=== PATIENT | male | born 1975 | race Caucasian/White ===

== ENCOUNTER 2019-06-27 18:00 | Outpatient (CLI) | payer BC | END 2019-06-27 18:01 | disposition home or self-care (01) | LOC: SLEEPLAB 18:00 | PROVIDERS: ATTEND Family Medicine | DX: G47.33 Obstructive sleep apnea (adult) (pediatric) (principal); E78.5 Hyperlipidemia, unspecified; K21.9 Gastro-esophageal reflux disease without esophagitis; E66.9 Obesity, unspecified; R06.83 Snoring; I10 Essential (primary) hypertension; Z68.35 Body mass index [BMI] 35.0-35.9, adult | CPT/HCPCS: 95806 ==